=== PATIENT | female | born 1945 | race Caucasian/White ===

== ENCOUNTER 2024-03-11 22:17 | Outpatient (CLI) | payer MEDICARE, MEDICAID, BC, SELFPAY | END 2024-03-11 22:18 | disposition home or self-care (01) | LOC: AMB 03-17 07:32 | PROVIDERS: PCP Family Medicine; Visit Provider Emergency Medicine | DX: E11.649 Type 2 diabetes mellitus with hypoglycemia without coma (principal); R53.1 Weakness | CPT/HCPCS: A0425; A0427 ==